=== PATIENT | female | born 1950 | race Caucasian/White ===

== ENCOUNTER 2021-11-06 12:41 | Emergency (ER) | payer OTHER ==
[~2021-11-06] VITALS: Ht 160 cm; Wt 51.3 kg
--- NOTE | 2021-11-06 12:54 | NUR ---
CODE STROKE ACTIVATED
[2021-11-06] MEDS ORDERED: IOHEXOL-350 100 ML VIAL IV ONE (12:58)
[2021-11-06 13:06] LABS: BASOPHILS # (AUTO) 0.1 K/uL (0.0-0.2); BASOPHILS % (AUTO) 1.4 % (0.0-2.0); EOSINOPHILS % (AUTO) 2.1 % (0.0-6.0); HEMATOCRIT 35 % (33-45); HEMOGLOBIN 11.6 g/dL (11.5-14.8); LYMPHOCYTES # (AUTO) 1.1 K/uL (0.8-4.8); LYMPHOCYTES % (AUTO) 17.7 % (20.0-44.0); MEAN CORPUSCULAR HGB CONC 33 g/dl (31.0-36.0); MEAN CORPUSCULAR VOLUME 97 fL (82-100); MONOCYTES # (AUTO) 0.4 K/uL (0.1-1.30); MONOCYTES % (AUTO) 5.7 % (2.0-12.0); NEUTROPHILS # (AUTO) 4.5 K/uL (1.8-8.9); NEUTROPHILS % (AUTO) 73.1 % (43.0-81.0); PLATELET COUNT (AUTO) 316 K/uL (150-450); RED BLOOD CELL COUNT(AUTO) 3.57 MIL/uL (4.0-5.2); WHITE BLOOD COUNT (AUTO) 6.2 K/uL (4.3-11.0)
[2021-11-06 13:17] LABS: CALCIUM, SERUM 8.9 mg/dL (8.5-10.1); CARBON DIOXIDE 33 mmol/L (21-32); CHLORIDE 104 mmol/L (98-107); CREATININE 0.7 mg/dL (0.6-1.3); GLUCOSE 99 mg/dL (74-106); POTASSIUM 3.8 mmol/L (3.5-5.1); SODIUM SERUM 140 mmol/L (136-145); UREA NITROGEN, BLOOD 9 mg/dL (7-18)
--- NOTE | 2021-11-06 13:20 | NUR ---
CALLED [facility] AND OPENED UP CASE FOR PT
--- NOTE | 2021-11-06 13:21 | NUR ---
NAYE REAVES ON TELE STROKE. Addendum: 11/06/21 at 1349 by LEONORA NAYE REAVES ON TELE STROKE SPEAKING TO THE PATIENT. ASSISTED PATIENT AT BEDSIDE.
--- NOTE | 2021-11-06 13:53 | NUR ---
CALLED MANUEL TUCKER MD TO
[2021-11-06] MEDS ORDERED: ASPIRIN 81 MG TAB.CHEW PO ONE (14:00)
--- NOTE | 2021-11-06 14:11 | NUR ---
SPOKE TO DAUGHTER/POA: JUAN HERRERA [phone], UPDATED WITH PATIENT STATUS
[2021-11-06] MEDS ORDERED: ASPIRIN 81 MG TAB.CHEW ONE (14:23)
--- NOTE | 2021-11-06 14:38 | NUR ---
MANUEL EPRP AND GAVE PT TRANSFER INFORMATION UNDER THE CARE OF DR. POLO NUMBER FOR REPORT [phone] [facility] WILL TRANSFER THE PT WITH A ETA OF [phone]
--- NOTE | 2021-11-06 15:12 | NUR ---
RAPID COVID SWAB DONE AND SENT TO LAB
--- NOTE | 2021-11-06 15:42 | NUR ---
REPORT GIVEN TO HEIDY GALLEGO OF [facility]
--- NOTE | 2021-11-06 16:54 | NUR ---
CALLED [facility] AND FOLLOWED UP ON [facility] TRANSPORT NEW ETA OF [phone]
--- NOTE | 2021-11-06 17:59 | NUR ---
PICKED UP BY [facility] UN[address] 156 IN STABLE CONDITION. PATIENT WILL BE TRANSFERRED TO [facility].
[2021-11-06 18:07] VITALS: BP 129/70
== END 2021-11-06 18:14 | disposition short-term general hospital (02) ==
LOC: ER 13:00
DX: G45.9 Transient cerebral ischemic attack, unspecified (principal); R29.701 NIHSS score 1; R73.03 Prediabetes; G30.9 Alzheimer's disease, unspecified; F02.80 Dementia in other diseases classified elsewhere, unspecified severity, without behavioral disturbance, psychotic disturbance, mood disturbance, and anxiety; I10 Essential (primary) hypertension; Z88.1 Allergy status to other antibiotic agents; Z20.822 Contact with and (suspected) exposure to COVID-19; Z88.2 Allergy status to sulfonamides; Z88.0 Allergy status to penicillin; F32.A Depression, unspecified
CPT/HCPCS: 36415; 70450; 70496; 70498; 71045; 80048; 82962; 84484; 85025; 85730; 87426; 93005; 99285; C9803; Q9967